=== PATIENT | female | born 1945 | race Caucasian/White ===

== ENCOUNTER 2022-07-20 14:08 | Outpatient (CLI) | payer MEDICARE | END 2022-07-20 23:59 | disposition home or self-care (01) | LOC: RAD 14:08 | PROVIDERS: ATTEND Physician Assistant | DX: K21.9 Gastro-esophageal reflux disease without esophagitis (principal); R13.14 Dysphagia, pharyngoesophageal phase | CPT/HCPCS: 74230 ==